=== PATIENT | male | born 1985 | race Caucasian/White ===

== ENCOUNTER 2017-11-04 09:36 | Emergency (ER) | payer SELFPAY ==
--- NOTE | 2017-11-04 10:24 | EDPHY ---
H & P Stated Complaint: Root canal x 2 this wk;last one yesterday;current pain med "not cutting it" Source: Patient Exam Limitations: No limitations - Personal History Current Tetanus Diphtheria and Acellular Pertussis (TDAP): Yes - Medical/Surgical History Other PMH: neg - Social History Smoking Status: Current every day smoker Time Seen by Provider: 11/04/17 10:21 HPI/ROS: HPI: This is a 32-year-old male presents with Chief Complaint: Root canal x 2 this wk;last one yesterday;current pain med " not cutting it" Location: Bottom right tooth Quality: Pain Duration: 1 day Signs and Symptoms: No jaw swelling, no fever, no chills, no radiation, no inability to swallow, + mild difficulty chewing, + sensitivity to cold water Timing: Acute, constant Severity: 10 out 10 Context: Patient has a history of poor dentition and tobacco use reports that Dr. Rajesh DDS performed a root canal on Sunday and then another 1 on Sunday. He was given amoxicillin and Percocet for which he is taking. He reports that he woke up in the middle night with the right lower tooth next to the ones that had a root canal performed now hurts. He is requesting morphine as the Percocet is not cutting it." He did not call his dentist this morning. Modifying Factors: See above Comment: ROS: see HPI Constitutional: No fever, no chills, no weight loss Eyes: No blurred vision Respiratory: No shortness of breath, no cough Cardiovascular: No chest pain Gastrointestinal: No nausea, no vomiting, no diarrhea Genitourinary: No dysuria Extremities: No myalgias Neurologic: No weakness, no numbness Skin: No rashes Hematologic: No bruising, no bleeding MEDICAL/SURGICAL/SOCIAL HISTORY: Medical history: Generally healthy. Does not take any regular medications. Surgical history: Oral surgery Social history: Employed. CONSTITUTIONAL: Nontoxic appearing adult white male, awake and alert, no obvious distress HEENT: Atraumatic and normocephalic, PERRL, EOMI. Tympanic membranes clear. Oropharynx clear, no exudate and moist pink mucosa. No jaw swelling. No malocclusion. No gingival swelling/erythema/discharge. Airway patent. No lymphadenopathy. No meningismus. Cardiovascular: Normal S1/S2, regular rate, regular rhythm, without murmur rub or gallop. PULMONARY/CHEST: Symmetrical and nontender. Clear to auscultation bilaterally. Good air movement. No accessory muscle usage. ABDOMEN: Soft, nondistended, nontender, no rebound, no guarding, no peritoneal signs, no masses or organomegaly. No CVAT. EXTREMITIES: 2/2 pulses, strength 5/5, no deformities, no clubbing, no cyanosis or edema. NEUROLOGICAL: no focal neuro deficits. GCS 15. SKIN: Warm and dry, no erythema. no rash. Good capillary refill. (Stella Espinoza) Constitutional: Initial Vital Signs Temperature (C) 36.6 C 11/04/17 09:45 Heart Rate 52 L 11/04/17 09:45 Respiratory Rate 16 11/04/17 09:45 Blood Pressure 122/84 H 11/04/17 09:45 O2 Sat (%) 96 11/04/17 09:45 O2 Delivery Mode Room Air Allergies/Adverse Reactions: No Known Allergies Allergy (Unverified 11/04/17 09:57) Home Medications: Medication Instructions Recorded Amoxicillin Trihydrate 500 mg PO Q8H 11/04/17 [Amoxicillin] oxyCODONE HCL/ACETAMINOPHEN 1 each PO 11/04/17 [Oxycodone-Acetaminophen 5-325] oxyCODONE HCL/ACETAMINOPHEN 1 each PO Q6 PRN #12 tablet 11/04/17 [Percocet 10-325 mg Tablet] Medical Decision Making ED Course/Re-evaluation: Afebrile no systemic signs. Offered patient dental block and he politely refused. He is requesting stronger pain medications than Percocet. I advised that this is not appropriate for the emergency room to prescribe stronger longer-acting pain medications that this would have to be left up to his oral surgeon that he is to call immediately. Sirs discussed case with Dr. Allred who was speaking with patient. Given IM morphine 6 mg, IM Toradol [address] Mena, at [phone], who agrees with plan. He reports that patient is flying out to [place] tomorrow and that is why he performed surgery on Sunday and Sunday. He would be happy to follow up with him advised him to call his office number as soon as possible. No signs of neurovascular compromise/dry socket/facial cellulitis/periapical abscess Reassessed patient; reports pain is down 50%. He advises that he will not be flying out to [place] today as he wishes to follow up with Dr. Mena. Patient will be discharged home with close follow-up with Dr. Mena. This patient was seen under the supervision of my secondary supervising physician. The patient was seen in conjunction with Dr. Allred, who saw and evaluated the patient. Patient's presentation, labs/imaging, treatment and plan of care were discussed with secondary supervising physician. (Stella Espinoza) The patient was evaluated and managed by the physician front end assistant. I have reviewed this chart and I agree with the findings and plan of care as documented , as indicated by my signature. I am the secondary supervising physician. ( Loraine Allred) Differential Diagnosis: Differential diagnosis includes dry socket, odontalgia, facial cellulitis, uncontrolled pain. (Stella Espinoza) - Data Points Medications Given: Discontinued Medications Ketorolac Tromethamine (Toradol) 30 mg IM EDNOW ONE Stop: 11/04/17 11:37 Last Admin: 11/04/17 11:43 Dose: 30 mg Morphine Sulfate (Morphine) 6 mg IM EDNOW ONE Stop: 11/04/17 11:37 Last Admin: 11/04/17 11:43 Dose: 6 mg Departure - Departure Disposition: Home, Routine, Self-Care Clinical Impression: Odontalgia Condition: Good Instructions: Toothache (ED), Root Canal (DC) Additional Instructions: Follow-up with Dr. Rajesh ARCEOP. Referrals: OTHER HEALTH CARE DC,. [[employer]] - As per Instructions Prescriptions: oxyCODONE HCL/ACETAMINOPHEN [Percocet 10-325 mg Tablet] 1 each PO Q6 PRN #12 tablet PRN Reason: Pain, Severe
[2017-11-04] MEDS ORDERED: KETOROLAC 15 MG/1 ML SDV IVP ONE (10:47)
[2017-11-04] MEDS ORDERED: KETOROLAC 30 MG/1 ML SDV IM ONE (11:36)
[2017-11-04 12:17] VITALS: BP 124/88; PULSE 61; RESP 18; TEMP 97.5; O2SAT 92
== END 2017-11-04 12:17 | disposition home or self-care (01) ==
DX: K08.89 Other specified disorders of teeth and supporting structures (principal); F17.200 Nicotine dependence, unspecified, uncomplicated
CPT/HCPCS: J1885